=== PATIENT | female | born 1995 | race African-American/Black ===

== ENCOUNTER 2024-02-01 09:14 | Emergency (ER) | payer MEDICAID ==
[~2024-02-01] VITALS: Ht 162.6 cm; Wt 64.0 kg
[2024-02-01 09:20] VITALS: O2SAT 98
[2024-02-01] MEDS: DIPHENHYDRAMINE 50MG/ML VIAL IM ONE (11:00)
[2024-02-01] MEDS: HALOPERIDOL LACTATE 5MG/ML VIAL IM ONE (11:00)
[2024-02-01] MEDS: LORAZEPAM 2MG/ML INJ IM ONE (11:00)
[2024-02-01] MEDS: CEFTRIAXONE SODIUM 500MG VIAL IM ONE (11:00)
[2024-02-01] MEDS: AZITHROMYCIN 500 MG TABLET PO ONE (11:00)
[2024-02-01 16:06] LABS: BASOPHILS % 0.8 % (0.0-2.0); EOSINOPHILS % 1.9 % (0.0-5.0); HEMATOCRIT. 27.4 % (36.0-48.0); HEMOGLOBIN. 8.7 g/dL (12.0-16.0); LYMPHOCYTES % 40.1 % (20.0-50.0); MEAN CORPUSCULAR HEMOGLOBIN 26.2 pg (28.0-32.0); MEAN CORPUSCULAR HGB CONC 31.8 g/dL (31.0-37.0); MEAN CORPUSCULAR VOLUME 82.5 fL (81.0-99.0); MEAN PLATELET VOLUME 8.1 fl (7.4-10.4); MONOCYTES % 13.7 % (2.0-8.0); NEUTROPHILS % 43.5 % (40.0-76.0); PLATELET 373 x1000/uL (130-400); RED BLOOD CELL COUNT 3.32 mill/uL (4.2-5.4); RED CELL DISTRIBUTION WIDTH 15.4 % (11.6-14.6); WHITE BLOOD COUNT 5.3 x1000/uL (4.5-11.0)
[2024-02-01 16:20] LABS: CHLORIDE 111 mEq/L (98-107); POTASSIUM 3.8 mEq/L (3.5-5.1); SODIUM 141 mEq/L (136-145)
[2024-02-01 16:21] LABS: CARBON DIOXIDE 27 mEq/L (21-32)
[2024-02-01 16:22] LABS: CALCIUM 8.8 mg/dL (8.7-10.4)
[2024-02-01 16:27] LABS: CREATININE 0.8 mg/dL (0.6-1.0); GLUCOSE 79 mg/dL (70-105); UREA NITROGEN BLOOD 14 mg/dL (9-23)
[2024-02-01 16:28] LABS: ACETAMINOPHEN < 2 ug/mL (10-30); HCG SCREEN NEGATIVE
[2024-02-01 16:31] LABS: ETHANOL BLOOD < 10 mg/dL (<10)
[2024-02-01 19:21] VITALS: BP 123/81; PULSE 88; RESP 16; TEMP 97.9
== END 2024-02-01 22:59 | disposition home or self-care (01) ==
LOC: ER 09:14
DX: R45.1 Restlessness and agitation (principal); F20.9 Schizophrenia, unspecified
CPT/HCPCS: 80048; 80307; 80329; 80320; 84703; 85025; 36415; 96372; 99285; J0696; J1200; J1630; J2060; Z7610 ×2; G0480